=== PATIENT | female | born 1960 | race Caucasian/White ===

== ENCOUNTER 2017-07-18 10:11 | Outpatient (CLI) | payer OTHER ==
--- NOTE | 2017-07-18 11:52 | RAD ---
PA AND LATERAL CHEST: HISTORY: Preop. COMPARISON: 06/07/2017 FINDINGS: Heart size is within normal limits. There are atherosclerotic changes of the aorta. Right upper lob e pleural and parenchymal lung changes are fairly similar to the previous exam. Some of the apparent cavitary change is slightly improved. IMPRESSION: Minimal overall change in the right upper lobe pleural and parenchymal lung changes. POS: [facility]
== END 2017-07-18 10:12 | disposition home or self-care (01) ==
LOC: RAD 10:11
PROVIDERS: ATTEND Internal Medicine Critical Care Medicine
DX: R06.00 Dyspnea, unspecified (principal)
CPT/HCPCS: 71046

== ENCOUNTER 2017-08-20 12:54 | Outpatient (CLI) | payer OTHER ==
--- NOTE | 2017-08-20 14:19 | RAD ---
CHEST TWO VIEWS: History: Dyspnea. Comparison: FINDINGS: There is mildly increased confluence of the right upper lobe nodular density which appears more mass like. The effusion around it is decreased. In the periphery of the right upper lobe there is also a s table opacity. This is similar. Remainder of the lungs are clear. Cardiac silhouette and mediastinal contours are within normal limits. IMPRESSION: 1. Mild increased confluence right upper lobe opacity may be sequellae of a developing scar, less lik ricardo a malignant process. 2. Mild low grade interstitial prominence of the lungs may be sequellae of edema or atypical infectio us process. POS: [facility]
== END 2017-08-20 12:55 | disposition home or self-care (01) ==
LOC: RAD 12:54
PROVIDERS: ATTEND Internal Medicine Critical Care Medicine
DX: R06.00 Dyspnea, unspecified (principal); R91.8 Other nonspecific abnormal finding of lung field
CPT/HCPCS: 71046

== ENCOUNTER 2017-09-18 11:45 | Outpatient (CLI) | payer OTHER ==
[2017-09-18 13:25] LABS: Hemoglobin 14.3 g/dL (12.0-16.0); Mean Corpuscular HGB CONC 33.8 g/dL (32.0-36.0); Mean Corpuscular Hemoglobin 27.3 pg (27.0-31.0); Mean Corpuscular Volume 80.8 fl (81.0-99.0); Platelet Count 312 thou/uL (130-400); RBC Distribution Width 14.6 % (11.5-14.5); Red Blood Cell (RBC) Count 5.23 mill/uL (4.20-5.40); White Blood Cell (WBC) Count 9.3 thou/uL (4.8-10.8)
[2017-09-18 13:34] LABS: Prothrombin Time 13.2 SEC (12.0-14.7)
[2017-09-18 13:54] LABS: Anion Gap 14 mmol/L (10-20); BUN (Urea Nitrogen) 10 mg/dL (9.8-20.1); Calc. Creatinine Clearance 0 mL/min (70-130); Calcium 9.3 mg/dL (7.8-10.44); Carbon Dioxide 25 mmol/L (22-29); Chloride 104 mmol/L (98-107); Estimated GFR-MDRD 88; Glucose 174 mg/dL (70-105); Potassium 3.9 mmol/L (3.5-5.1); Sodium 139 mmol/L (136-145)
--- NOTE | 2017-09-18 14:22 | RAD ---
TWO VIEWS OF THE CHEST: DATE: 09/18/17. COMPARISON: 08/20/17. HISTORY: Preoperative patient. FINDINGS: Coarse irregularity linear interstitial density is noted in the right upper lobe with associated emph ysematous change/cavitation, similar when compared to 08/20/17 and improved when compared to 07/18/17. Findings suggest the sequelae of prior infection. No pneumothorax, pleural fluid, focal consolidatio n, or alveolar edema. IMPRESSION: Asymmetric increased linear densities noted in the right lung apex as detailed above. Findings are l ikely on the basis of scar associated with prior infection. Malignancy is felt less likely. Continu ed followup to ensure stability advised. CODE T POS: [id number]
--- NOTE | 2017-09-18 20:36 | EKG ---
Test Reason : Blood Pressure : / mmHG Vent. Rate : 081 BPM Atrial Rate : 081 BPM P-R Int : 132 ms QRS Dur : 078 ms QT Int : 384 ms P-R-T Axes : 083 063 088 degrees QTc Int : 446 ms Normal sinus rhythm Normal ECG When compared with ECG of 14-MAY-2016 16:14, No significant change was found Confirmed by CIRO VALVERDE, STee ([id number]) on 09/18/2017 8:35:51 PM Referred By: BRANDEN Confirmed By:DR. Jerry TANNER MD
== END 2017-09-18 11:46 | disposition home or self-care (01) ==
LOC: LABBT 11:45
PROVIDERS: ATTEND Orthopaedic Surgery
DX: Z01.818 Encounter for other preprocedural examination (principal); M75.102 Unspecified rotator cuff tear or rupture of left shoulder, not specified as traumatic; M75.22 Bicipital tendinitis, left shoulder; R91.8 Other nonspecific abnormal finding of lung field
CPT/HCPCS: 71046; 80048; 85027; 85610; 93005; 93010

== ENCOUNTER 2017-09-19 05:35 | Day surgery (SDC) | payer OTHER ==
[2017-09-18 12:20] VITALS: BMI 20.7
[2017-09-19] MEDS ORDERED: Midazolam HCl 2 mg/2 ml Vial ONE (06:23)
[2017-09-19] MEDS ORDERED: Fentanyl 100 MCG/2 ML VIAL ONE ×2 (06:23→08:35)
[2017-09-19] MEDS ORDERED: CEFAZOLIN/Water 2 GM/20 ML SYRINGE ONE (06:24)
[2017-09-19] MEDS ORDERED: Bupivacaine/Epinephrine 0.25% 30 ML VIAL ONE (06:32)
[2017-09-19] MEDS ORDERED: Promethazine HCl 25 MG/ML VIAL IM PRN (07:02)
[2017-09-19] MEDS ORDERED: Zolpidem Tartrate 5 MG TAB PO PRN (07:02)
[2017-09-19] MEDS ORDERED: Ondansetron HCl/PF 4 MG/2 ML Vial IVP PRN (07:02)
[2017-09-19] MEDS ORDERED: Fentanyl 100 MCG/2 ML VIAL SLOW IVP PRN (07:03)
[2017-09-19] MEDS ORDERED: Ropivacaine HCl/PF 1,100 MG in Sodium Chloride 0.9% 440 ML NERVE BLCK SCH (07:07)
[2017-09-19] MEDS ORDERED: Ropivacaine 0.5% HCl/PF (150 MG/30 ML VIAL) ONE (10:43)
[2017-09-19] MEDS ORDERED: Ropivacaine 0.2% HCl/PF 20 ML ONE (10:44)
--- NOTE | 2017-09-19 11:07 | OP ---
DATE OF PROCEDURE: 09/19/2017 PREOPERATIVE DIAGNOSES: 1. Partial cuff tear. 2. Biceps tendinosis. 3. Acromioclavicular arthrosis forearm impingement. POSTOPERATIVE DIAGNOSES: 1. A 30% tear, biceps tendon with partial subscapularis tear. 2. Partial subscapularis tear. 3. Impingement. 4. AC joint arthritis. PROCEDURE PERFORMED: 1. Biceps tenodesis. 2. Distal clavicle resection. 3. Subacromial decompression. STAFF: Angelo Stacy M.D. FACILITIES OPERATIONS TECHNICIAN: Jm Hartman PA-C ANESTHESIA: The patient received a general intubation with interscalene block. ESTIMATED BLOOD LOSS: 30 mL. TOURNIQUET TIME: None. IMPLANTS: An Arthrex 7 x 19.5 SwiveLock tenodesis screw [employer]. ANTIBIOTICS: Ancef 2 grams. COMPLICATIONS: None. HISTORY OF PRESENT ILLNESS: Ms. Cabello is 57-year-old female who has been followed by me for over a year of left shoulder pain. The patient has pain radiating in her arm. The patient had numbness in her hand. The patient had MRI evidence showing biceps tendonopathy, possible concern for left shoulder RTC tear. She had several subacromial injections with good relief. I discussed with the patient the risks and benefits of an arthroscopic evaluation of rotator cuff for possible repair, biceps tenodesis, subacromial decompression , distal clavicle resection. I discussed risks and benefits of the surgery to include pain, scar, bleeding, infection, damage to vital structures, decreased range of motion or strength, failure of procedure, continued pain despite surgical intervention, loss of life or limb. The patient understood these risks and elected to proceed. PROCEDURE IN DETAIL: Timeout was performed designating the patient's left upper extremity as the operative site based on sites, consents and markings. After completion of timeout the patient's posterior compartments were placed intra-articularly within the glenoid and humeral surfaces. I saw no full thickness defects. There was about 30% tear of the patient's biceps tendon. We tagged and cut that for a tenotomy. I looked, there was some undersurface tearing, partial tearing of the rotator cuff as well as some subscapularis tearing. I was concerned about the biceps actually causing some of the fretting and damage to the subscapularis. I saw no other loose bodies or defects. We then moved subacromially, debrided bursa, saw a small hook in the acromion which was burred down for decompression, exposed the distal clavicle. We then moved, found our biceps interval, came down with knife to expose the biceps, cleaned up on both sides of the biceps to expose, pulled it into place, drilled a hole. We had taken a Fiberloop passed it with 4 passes through the biceps, passed it back through, then passed it through the tongs of our anchor, found our hole and screwed it into place, had firm fixation cut and pulled our sutures. We took a picture of frontal biceps. We then moved medially. We had made both our lateral working portals, was an anterior lateral portal which we extended the skin to help with our tenodesis. We closed that to help with the pressure in the shoulder. We then moved medially, resection of distal clavicle burs to ensure that we had good position. I liked the overall alignment. We then washed, closed with 3-0 Nylon. The patient was placed in a sling. She will have elbow, wrist, and hand and shoulder range of motion exercises. No active elbow flexion on her elbow until I see her back in 6 weeks. NOMAN
[2017-09-19] MEDS ORDERED: PHENYLEPHRINE-NS 100 MCG/ML 10 ML SYRINGE ONE (12:57)
[2017-09-19] MEDS ORDERED: Glycopyrrolate 0.2 MG/ML 5 ML SYRINGE ONE (12:57)
[2017-09-19] MEDS ORDERED: PROPOFOL 200 MG/20 ML VIAL ONE (12:57)
[2017-09-19] MEDS ORDERED: ePHEDrine/0.9% NaCl/PF SYRINGE 50 mg/10 ml ONE (12:57)
== END 2017-09-19 11:15 | disposition home or self-care (01) ==
LOC: SDC 05:35
PROVIDERS: ATTEND Orthopaedic Surgery
PROC: 0LS44ZZ Reposition Left Upper Arm Tendon, Percutaneous Endoscopic Approach (ICD-10-PCS; principal; 2017-09-19)
PROC: 0LQ24ZZ Repair Left Shoulder Tendon, Percutaneous Endoscopic Approach (ICD-10-PCS; principal; 2017-09-19)
DX: M75.112 Incomplete rotator cuff tear or rupture of left shoulder, not specified as traumatic (principal); M75.22 Bicipital tendinitis, left shoulder
CPT/HCPCS: 71046; 80048; 85027; 85610; 93005; 93010; C1713; G8984-GP-CK; G8985-GP-CK; G8986-GP-CK; J2250; J2795; J3010; J7050